=== PATIENT | male | born 1960 | race Caucasian/White ===

== ENCOUNTER 2025-03-21 11:07 | Day surgery (SDC) | payer OTHER ==
[2025-03-21] MEDS ORDERED: CEFAZOLIN SODIUM ONE (11:21)
[2025-03-21 11:41] VITALS: RESP 18
[2025-03-21 11:52] LABS: Hematocrit 45.2 % (40.1-51.0); Hemoglobin 15.4 g/dL (13.7-17.5); Mean Corpuscular Hemoglobin 30.3 pg (25.7-32.2); Mean Corpuscular Hgb Concent. 34.1 g/dL (32.3-36.5); Platelet Count 167 x10^3/uL (163-337); Red Blood Count 5.09 x10^6/uL (4.63-6.08); White Blood Count 7.6 x10^3/uL (4.23-9.07)
[2025-03-21 12:05] LABS: Calcium 8.9 mg/dL (8.4-10.2); Carbon Dioxide 24.0 mmol/L (22-30); Creatinine 1 0.77 mg/dL (0.66-1.25); EST GLOMERULAR FILTRATION RATE 100.6 ML/MIN; Glucose 252.0 mg/dL (74-106); Potassium 4.4 mmol/L (3.5-5.1); SGOT/AST 25.0 U/L (17-59); SGPT/ALT 25.0 U/L (0-50); Total Protein 7.5 g/dL (6.3-8.2)
[2025-03-21] MEDS ORDERED: Xylocaine 1% Vial 30 ML PF IJ ONE (12:52)
[2025-03-21] MEDS ORDERED: Marcaine Mpf 0.5% Vial 30 Ml ONE (12:52)
--- NOTE | 2025-03-21 14:29 | XRAY ---
Indication: Right foot bone biopsy. Intraoperative fluoroscopy provided for 11 seconds. 5 digital spot images submitted for interpretation demonstrates needle tips projecting over 1st/3rd metatarsal heads and 1st proximal phalanx. Correlate with intraoperative findings/report.
[2025-03-21 14:32] VITALS: BP 128/86; PULSE 70; TEMP 97.6; O2SAT 97
--- NOTE | 2025-03-21 17:11 | XRAY ---
11 seconds of fluoroscopy was used in surgery for a right foot bone biopsy.
--- NOTE | 2025-03-25 13:40 | OP ---
SURGERY DATE/TIME: 03/21/2025 [id number] PREOPERATIVE DIAGNOSES: 1) Osteomyelitis. 2) Charcot osteoarthropathy, forefoot, right. POSTOPERATIVE DIAGNOSES: 1) Osteomyelitis. 2) Charcot osteoarthropathy, forefoot, right. PROCEDURES: 1) Bone biopsy of first metatarsal, right foot. 2) Bone biopsy of first proximal phalanx. 3) Bone biopsy of second metatarsal. 4) Bone biopsy of second proximal phalanx. SURGEON: Jesse Starkey DPM CUST[employer] VAN CONVERTER: None. ANESTHESIA: Local. HEMOSTASIS: Pressure dressing. ESTIMATED BLOOD LOSS: Approximately 3 mL. MATERIALS: 3-0 nylon. INJECTABLES: 20 mL of a 1:1 mixture of 1% lidocaine plain and 0.5% bupivacaine plain injected in a Montelongo and intermetatarsal block-type fashion to the right foot. INDICATION FOR PROCEDURE: The patient is a very pleasant 65-year-old male who presented to my service after a suspected Charcot attack to his right forefoot. This occurred after a surgery from a provider in [place] that resulted in what appeared to be a Charcot attack and then deformity of the forefoot. From that standpoint, patient had no history of use of IV antibiotics or expected soft tissue or bone infection following the procedure. 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 Patient is concerned at this time and wishes to proceed to wear normal shoe gear once again. It was stated to him, since this was in the setting of a surgical procedure that we needed to obtain biopsies prior to, to make sure that there was no bone infection. Patient was amenable at this time. It is noted that this is intended to be a staged procedure and that, for the reconstruction, we would have to confirm the absence of bone infection before we proceed in order to prevent a septic union. Patient is then made aware of all risks, complications, and benefits of surgical intervention at this time included but not limited to infection, hematoma, seroma, possibility of the delayed wound healing, non-wound healing, and possible need for further surgical intervention at a later date. No guarantees have been provided as to the outcome of surgical intervention. Plenty of time was allowed for the patient to ask questions, which were answered to his apparent satisfaction. It is at this time we decided to proceed. DESCRIPTION OF PROCEDURE AND FINDINGS: The patient was brought in to the operating room, placed on the operating room table in the supine position. At this time, the right lower extremity was prepped and draped in a typical sterile fashion and lowered on to the surgical field. Attention was directed to the right foot, where a Montelongo block and an intermetatarsal block was performed. Once performed, sufficient amount of time took place for the patient to get adequate numbing to these areas. Under fluoroscopic guidance, a bone biopsy was obtained of the first metatarsal utilizing a trocar, which was handed off the field in simple pathological assessment. So a stab incision was made utilizing a 15-blade, which was dissected bluntly with a curved hemostat to the level of bone. Then, a Jamshidi needle was then utilized to obtain a bone biopsy from the first metatarsal. The same procedure was carried out for the first proximal phalanx, the second proximal phalanx, and the second metatarsal. Following this, copious amounts of sterile saline were utilized to flush the surgical site. A simple interrupted 3-0 nylon was utilized to coapt the skin edges. Dressing consisting of Betadine, Adaptic, 4 x 4's, Kerlix, ABD, and Adrian was applied to the patient's right lower extremity. The patient was then returned to the postoperative area with vital signs stable and vascular status intact. He handled the procedure without significant complication.
== END 2025-03-21 14:42 | disposition home or self-care (01) ==
LOC: SDC 11:07
PROVIDERS: ATTEND Podiatrist Foot & Ankle Surgery
DX: M86.9 Osteomyelitis, unspecified (principal); M14.671 Charcot's joint, right ankle and foot